=== PATIENT | male | born 1955 | race Caucasian/White ===

== ENCOUNTER → 2020-09-21 | Outpatient (CLI) | payer MEDICARE, BC ==
[~2020-09-21] MED LIST: ASPI-630 PO; ATOR20TA58 PO; ESZOPICLONE; KRIL1CAP5 PO; LEVO125T5 PO; MULT-735 PO; PANT40TA6 PO; UBID200C7 PO
== END ==
LOC: LAB 09:00
PROVIDERS: ATTEND Nurse Anesthetist, Certified Registered
DX: Z01.812 Encounter for preprocedural laboratory examination (principal); K21.9 Gastro-esophageal reflux disease without esophagitis; Z20.822 Contact with and (suspected) exposure to COVID-19
CPT/HCPCS: U0003

== ENCOUNTER → 2020-09-25 | Day surgery (SDC) | payer MEDICARE, BC ==
[~2020-09-25] MED LIST changes: +IPRATRPIUM/ALBUTEROL 0.5/2.5MG 3 ML NEBU. NEB PRN; +IV RINGERS SOLUTION,LACTATED 1,000 ML IV SCH; +LIDOCAINE 2% PF 5 ML VIAL. ONE; +MIDAZOLAM HCL PF 2 MG/2 ML VIAL. IV ONE; +ONDANSETRON PF 4 MG/2 ML VIAL. IV PRN; +PROPOFOL 10,000 MCG/ML (20ML) VIAL IV ONE
[2020-09-25 08:28] VITALS: BP 114/78
--- NOTE | 2020-10-01 16:20 | PATHOLOGY ---
[facility] Accession Number: [id number] . 01 Material submitted: . PART A: stomach - ANTRUM BIOPSY. Modifiers: ANTRUM PART B: esophagus - DISTAL ESOPHAGUS. Modifiers: distal . 01 Clinical history: . EGD . 02 Diagnosis: A. Gastric biopsy, antrum: - Chronic gastritis, mild. . B. Esophageal biopsies, distal esophagus: - Segment of mildly hyperplastic squamous esophageal mucosa, and segment of gastric mucosa showing mild chronic inflammation. ([facility] 10/01/2020) [facility] 10/01/2020 1352 Local . 02 Comment: Sections of the gastric biopsy reveal gastric antral/body transition mucosa showing congestion and mild chronic inflammation. A properly controlled immunoperoxidase for Helicobacter is negative for Helicobacter organisms. . Sections of the distal esophageal biopsy reveal a segment of tangentially oriented mildly hyperplastic squamous esophageal mucosa, and a segment of gastric mucosa showing mild chronic inflammation. The findings are consistent with reflux esophagitis. There is no evidence of Sánchez's change, dysplasia, or malignancy. (JPM:[facility] 10/01/2020) . Special stain performed: Immunoperoxidase for Helicobacter on A1. . 02 Electronically signed: . Ezra Trujillo MD, Pathologist NPI- [id number] . 01 Gross description: . A. Received in formalin labeled "Nigel Bahena, antrum biopsy " is a fragment of ochoa-brown soft tissue measuring 0.4 x 0.3 x 0.3 cm. The specimen is submitted entirely in A1. . B. Received in formalin labeled "Nigel Bahena distal esophagus biopsy" are two fragment of ochoa-brown soft tissue measuring 0.5 x 0.3 x 0.3 cm and 0.4 x 0.4 x 0.2 cm. The specimen is submitted entirely in B1. ([facility]; 09/28/2020) GZA/GZA 10/01/2020 1348 Local . 02 Pathologist provided ICD-10: K29.50 . 02 CPT . 487504, 679066, [id number] Specimen Comment: A courtesy copy of this report has been sent to [phone] Specimen Comment: [id number] Specimen Comment: Report sent to DR HORNE / DR HOLM Performed at: 01 [facility] [address], [place] [id number] MD Pieter Black MD Phone: [phone] Performed at: 02 [facility] [address] [place], [place] [id number] MD Ezra Trujillo MD Phone: [phone]
== END | disposition home or self-care (01) ==
LOC: SURG 06:56
PROVIDERS: ATTEND Emergency Medicine
DX: R10.13 Epigastric pain (principal); K21.9 Gastro-esophageal reflux disease without esophagitis; K29.50 Unspecified chronic gastritis without bleeding; Z79.899 Other long term (current) drug therapy; Z79.82 Long term (current) use of aspirin
CPT/HCPCS: 43239; J2001; J2704; J7120

== ENCOUNTER → 2020-11-23 | Outpatient (CLI) | payer MEDICARE, BC ==
[2020-09-25 08:28] VITALS: BP 114/78
[~2020-11-23] MED LIST changes: +ESZO2TAB21 PO; -IPRATRPIUM/ALBUTEROL 0.5/2.5MG 3 ML NEBU. NEB PRN; -IV RINGERS SOLUTION,LACTATED 1,000 ML IV SCH; -LIDOCAINE 2% PF 5 ML VIAL. ONE; -MIDAZOLAM HCL PF 2 MG/2 ML VIAL. IV ONE; -ONDANSETRON PF 4 MG/2 ML VIAL. IV PRN; -PROPOFOL 10,000 MCG/ML (20ML) VIAL IV ONE
== END ==
LOC: LAB 10:06
PROVIDERS: ATTEND Nurse Anesthetist, Certified Registered
DX: Z01.812 Encounter for preprocedural laboratory examination (principal); Z86.010 Personal history of colon polyps; Z20.822 Contact with and (suspected) exposure to COVID-19
CPT/HCPCS: U0003

== ENCOUNTER → 2020-11-27 | Day surgery (SDC) | payer MEDICARE, BC ==
[~2020-11-27] MED LIST changes: +GLYCOPYRROLATE 1 MG/5 ML VIAL. ONE; +IPRATRPIUM/ALBUTEROL 0.5/2.5MG 3 ML NEBU. NEB PRN; +IV RINGERS SOLUTION,LACTATED 1,000 ML IV SCH; +LIDOCAINE 2% PF 5 ML VIAL. ONE; +MIDAZOLAM HCL PF 2 MG/2 ML VIAL. IV ONE; +ONDANSETRON PF 4 MG/2 ML VIAL. IV PRN; +PROPOFOL 10,000 MCG/ML (20ML) VIAL IV ONE
[2020-11-27 09:45] VITALS: BP 108/81
--- NOTE | 2020-11-30 14:11 | PATHOLOGY ---
[facility] Accession Number: [id number] . 01 Material submitted: . colon - TRANSVERSE COLON POLYP. Modifiers: transverse . 01 Clinical history: . HX POLYPS, FX HX CA COLON . 02 Diagnosis: Colon biopsies, transverse colon polyp: - Tubular adenoma. ([facility]; 11/30/2020) S 11/30/2020 0906 Local . 02 Comment: There is no high grade dysplasia or evidence of malignancy. ([facility]PM:[facility]; 11/30/2020) . 02 Electronically signed: . Ezra Trujillo MD, Pathologist NPI- [id number] . 01 Gross description: . The specimen is received in formalin, labeled "Shruti Nigel", "transverse colon polyp". Received are 2 segments of pale ochoa soft tissue measuring 0.2 and 0.4 cm. The specimen is entirely submitted in cassette A1.([facility]; 11/29/2020) HUGO/VELMA 11/29/2020 0820 Local . 02 Pathologist provided ICD-10: D12.3 . 02 CPT . 824549 Specimen Comment: A courtesy copy of this report has been sent to [phone] Specimen Comment: Report sent to Performed at: 01 [facility] [address], [place], [place] [id number] MD Pieter Black MD Phone: [phone] Performed at: 02 [facility] [address] [place], [place] [id number] MD Ezra Trujillo MD Phone: [phone]
== END | disposition home or self-care (01) ==
LOC: SURG 07:36
PROVIDERS: ATTEND Internal Medicine Gastroenterology
DX: Z12.11 Encounter for screening for malignant neoplasm of colon (principal); D12.3 Benign neoplasm of transverse colon; E78.00 Pure hypercholesterolemia, unspecified; K21.9 Gastro-esophageal reflux disease without esophagitis; E07.9 Disorder of thyroid, unspecified; K29.50 Unspecified chronic gastritis without bleeding; Z79.899 Other long term (current) drug therapy; Z86.010 Personal history of colon polyps; Z80.0 Family history of malignant neoplasm of digestive organs
CPT/HCPCS: 45385; 88305; J2001; J2704; J3490; J7120; 45380; 99152